=== PATIENT | female | born 1995 | race Caucasian/White ===

== ENCOUNTER → 2018-04-21 | Outpatient (REF) | payer BC | LOC: M LAB REF 04-22 10:14 | DX: Z12.4 Encounter for screening for malignant neoplasm of cervix (principal) ==

== ENCOUNTER → 2018-05-07 | Outpatient (REF) | payer OTHER | LOC: M LAB REF 13:06 | DX: Z12.4 Encounter for screening for malignant neoplasm of cervix (principal) | CPT/HCPCS: G0123 ==

== ENCOUNTER → 2019-05-20 | Outpatient (CLI) | payer OTHER ==
[2019-05-20 11:08] LABS: CHOLESTEROL RISK RATIO 2.714 (<5); FREE T4 0.96 NG/DL (0.76-1.46); PROLACTIN 11.2 NG/ML; THYROID STIMULATING HORMONE 1.57 uIU/ML (0.358-3.740)
[2019-05-20 11:09] LABS: ESTRADIOL 26.2 PG/ML; FOLLICLE STIMULATING HORMONE 4.8 mIU/mL; LUTEINIZING HORMONE 2.8 mIU/mL
[2019-05-20 11:11] LABS: HEMOGLOBIN A1c 5.2 %
[2019-05-20 11:15] LABS: HEMATOCRIT 40.7 % (36.0-47.0); MEAN CORPUSCULAR HEMOGLOBIN 27.7 pg (27.0-33.0); MEAN CORPUSCULAR HGB CONC 31.9 g/dl (32.0-36.5); MEAN CORPUSCULAR VOLUME 86.8 fl (80.0-96.0); PLATELET COUNT, AUTOMATED 301 10^3/uL (150-450); RED BLOOD COUNT 4.69 10^6/uL (4.00-5.40); WHITE BLOOD COUNT 7.9 10^3/uL (4.0-10.0)
[2019-05-24 14:39] LABS: 17 HYDROXY PROGESTERONE 17 ng/dL (.); INSULIN LEVEL 28.8 uIU/mL (2.6-24.9); TESTOSTERONE FREE (DIRECT) 3.2 pg/mL (0.0-4.2)
== END ==
LOC: M WUC 08:14
PROVIDERS: ATTEND Advanced Practice Midwife
DX: N92.6 Irregular menstruation, unspecified (principal)

== ENCOUNTER → 2019-06-14 | Outpatient (CLI) | payer OTHER | LOC: M WUC 12:24 | PROVIDERS: ATTEND Advanced Practice Midwife | DX: N92.6 Irregular menstruation, unspecified (principal) ==

== ENCOUNTER → 2019-07-25 | Outpatient (CLI) | payer OTHER, BC | LOC: M WUC 10:45 | PROVIDERS: ATTEND Advanced Practice Midwife | DX: N92.6 Irregular menstruation, unspecified (principal) ==

== ENCOUNTER 2020-03-29 09:49 | Emergency (ER) | payer BC, OTHER ==
[~2020-03-29] VITALS: Ht 160 cm; Wt 120.6 kg
[2020-03-29] MEDS ORDERED: FLUTISP (10:00)
[2020-03-29] MEDS ORDERED: ADV100INH (10:00)
[2020-03-29] MEDS ORDERED: LEVA45AE (10:00)
[2020-03-29 11:01] LABS: BASO % 0.3 % (0.0-1.0); EOS # 0.1 10^3/uL (0.0-0.5); EOS % 0.5 % (0.0-3.0); HEMATOCRIT 40.9 % (36.0-47.0); HEMOGLOBIN 13.2 g/dl (12.0-15.5); LYMPH # 2.1 10^3/uL (1.5-5.0); LYMPH % 18.8 % (24.0-44.0); MEAN CORPUSCULAR HEMOGLOBIN 27.3 pg (27.0-33.0); MEAN CORPUSCULAR HGB CONC 32.3 g/dl (32.0-36.5); MEAN CORPUSCULAR VOLUME 84.5 fl (80.0-96.0); MONO # 0.7 10^3/uL (0.0-0.8); MONO % 6.5 % (0.0-5.0); NEUTROPHILS # 8.2 10^3/uL (1.5-8.5); NEUTROPHILS % 73.4 % (36.0-66.0); PLATELET COUNT, AUTOMATED 302 10^3/uL (150-450); RED BLOOD COUNT 4.84 10^6/uL (4.00-5.40); WHITE BLOOD COUNT 11.1 10^3/uL (4.0-10.0)
[2020-03-29 11:12] LABS: APPEARANCE, URINE HAZY (CLEAR); BACTERIA, URINE AUTO 2+ (NEGATIVE); BILIRUBIN, URINE AUTO NEGATIVE (NEGATIVE); BLOOD, URINE BLOOD 3+ (NEGATIVE); COLOR, URINE YELLOW (YELLOW); GLUCOSE, URINE (UA) AUTO NEGATIVE (NEGATIVE); KETONE, URINE AUTO NEGATIVE (NEGATIVE); LEUKOCYTE ESTERASE, URINE AUTO 1+ (NEGATIVE); MUCUS, URINE SMALL (NEGATIVE); NITRITE, URINE AUTO NEGATIVE (NEGATIVE); PROTEIN, URINE AUTO NEGATIVE (NEGATIVE); RBC, URINE AUTO 157 /HPF (0-3); SPECIFIC GRAVITY URINE AUTO 1.013 (1.002-1.035); SQUAMOUS EPITHELIAL CELL UR AU 3 /HPF (0-6); UROBILINOGEN, URINE AUTO 0.2 mg/dL (0.0-2.0); WBC, URINE AUTO 30 /HPF (0-3)
--- NOTE | 2020-03-29 11:19 | REPVR ---
PROCEDURE INFORMATION: Exam: US First Trimester, Transabdominal and US , Transvaginal Exam date and time: 03/29/2020 10:42 AM Age: 24 years old Clinical indication: Lmp or gestational age (in weeks): 7w4d; Antepartum complications; Bleeding; ; Additional info: 7wks with vag bleeding and cramping TECHNIQUE: Imaging protocol: Real-time transabdominal obstetrical ultrasound of the maternal pelvis and a first trimester , less than 14 weeks 0 days, with image documentation. Transvaginal imaging was used for better evaluation of the fetus and adnexa. COMPARISON: No relevant prior studies available. FINDINGS: Gestation: Single sac like structure within the uterus. This may represent a very early intrauterine gestational sac. No definite yolk sac or pole. Embryonic/ heart rate: N/A Placenta: Unremarkable. No subchorionic bleed. Amniotic fluid: N/A BIOMETRY: Gestational age (AUA): Mean sac diameter measures 4 mm, compatible with a gestational age of 4 weeks and 6 days. Estimated due date (AUA): Estimated date of delivery is November 30, 2020. MATERNAL: Uterus: Uterus measures 7.2 x 3.5 by 3.4 cm. Cervix: Unremarkable. Right adnexa: Positive right ovarian blood flow. Left adnexa: Positive left ovarian blood flow. Intraperitoneal space: No intraperitoneal free fluid. IMPRESSION: Single tiny sac-like structure within the uterus. This may represent a very early intrauterine gestational sac, dating 4 weeks and 6 days. Recommend follow-up beta HCG and short-term interval follow-up pelvic ultrasound. Electronically signed by: Radha Ortega On 03/29/2020 11:19:39 AM
[2020-03-29 11:28] LABS: BLOOD UREA NITROGEN 7 MG/DL (7-18); CALCIUM LEVEL 8.7 MG/DL (8.5-10.1); CARBON DIOXIDE LEVEL 25 MEQ/L (21-32); CHLORIDE LEVEL 107 MEQ/L (98-107); CREATININE FOR GFR 0.64 MG/DL (0.55-1.30); GLOMERULAR FILTRATION RATE > 60.0 (>60); GLUCOSE, FASTING 83 MG/DL (70-100); HCG, SERUM QUANTITATIVE 432 MIU/ML; POTASSIUM SERUM 3.8 MEQ/L (3.5-5.1); SODIUM LEVEL 138 MEQ/L (136-145)
[2020-03-29] MEDS ORDERED: KEFL500C17 PO (12:00)
[2020-03-29 12:06] VITALS: BP 136/81
== END 2020-03-29 12:08 | disposition home or self-care (01) ==
LOC: M ED 09:49
DX: O26.851 Spotting complicating pregnancy, first trimester (principal); O23.41 Unspecified infection of urinary tract in pregnancy, first trimester; Z3A.01 Less than 8 weeks gestation of pregnancy; Z79.899 Other long term (current) drug therapy

== ENCOUNTER → 2020-03-31 | Outpatient (CLI) | payer BC, OTHER ==
[~2020-03-31] MED LIST: ADV100INH; FLUTISP; KEFL500C17 PO; LEVA45AE
== END ==
LOC: M LAB 10:31
PROVIDERS: ATTEND Nurse Practitioner Family
DX: O20.0 Threatened abortion (principal); Z3A.00 Weeks of gestation of pregnancy not specified

== ENCOUNTER → 2020-04-07 | Outpatient (CLI) | payer BC, OTHER | LOC: M WUC 16:15 | PROVIDERS: ATTEND Advanced Practice Midwife | DX: O03.9 Complete or unspecified spontaneous abortion without complication (principal) ==

== ENCOUNTER → 2021-03-21 | Outpatient (CLI) | payer BC, OTHER ==
[2021-03-21 11:13] LABS: HCG, SERUM QUANTITATIVE < 1.0 MIU/ML
[2021-03-21 11:15] LABS: ESTRADIOL 30.9 PG/ML; LUTEINIZING HORMONE 4.4 mIU/mL; PROGESTERONE 0.49 NG/ML
[2021-03-21 11:16] LABS: FOLLICLE STIMULATING HORMONE 6.3 mIU/mL
== END ==
LOC: M RAD 09:29
PROVIDERS: ATTEND Obstetrics & Gynecology Reproductive Endocrinology
DX: N97.9 Female infertility, unspecified (principal)

== ENCOUNTER → 2021-03-29 | Outpatient (CLI) | payer BC, OTHER ==
--- NOTE | 2021-03-29 08:16 | REP ---
INDICATION: INFERTILITY. COMPARISON: Comparison exam March 21, 2021. TECHNIQUE: Transvaginal pelvic sonography. Ovarian follicle study. FINDINGS: Uterine dimensions are normal at 7.5 x 3.2 by 4.1 cm. Endometrial echo is 0.3 cm thick. No free fluid is seen. No focal uterine mass lesion is observed. The right ovary is dimensions are 4.1 x 2.7 x 2.8 cm. There is a 2.7 x 2.1 cm follicle in the right ovary and there are 4 follicles ranging in size from 0.6-0.8 cm in the right ovary. No other or ovarian follicles measuring over a cm today. The left ovary is dimensions are 3.3 x 2.4 x 2.1 cm. There are 2 follicles in the right ovary over a cm measured as follows: 1.1 x 0.6, and 1.1 x 0.7 cm. There are 14 follicles in the left ovary ranging in size from 0.2-0.9 cm. IMPRESSION: Ovarian follicle study findings as above. No significant morphologic abnormality. <Electronically signed by Niels Murcia > 03/29/21 [id number]
[2021-03-29 09:36] LABS: ESTRADIOL 102.5 PG/ML; LUTEINIZING HORMONE 6.6 mIU/mL; PROGESTERONE 0.21 NG/ML; TOTAL 25(OH) VITAMIN D 66.6 NG/ML (30.0-100.0)
== END ==
LOC: M RAD 06:42 → M LAB 06:42
PROVIDERS: ATTEND Obstetrics & Gynecology Reproductive Endocrinology
DX: N97.9 Female infertility, unspecified (principal)

== ENCOUNTER → 2021-03-31 | Outpatient (CLI) | payer BC, OTHER ==
--- NOTE | 2021-03-31 09:28 | REP ---
INDICATION: INFERTILITY-LABS FIRST. COMPARISON: None. TECHNIQUE: Transvaginal pelvic sonography. Ovarian follicle study. FINDINGS: Uterine dimensions are normal measured at 6.6 x 3.4 x 4.4 cm. Endometrial stripe is 0.9 cm thick. No focal uterine lesion is seen. No free fluid is noted. The right ovary has overall dimensions today of 4.2 x 3.0 x 3.1 cm. It contains a 2.6 x 2.4 cm cyst and 8 follicle cysts ranging in size from 0.3-0.8 cm. There are no other follicles in the right ovary measuring greater than a cm. The left ovary's dimensions are 3.1 x 1.8 x 2.2 cm today. There are no follicles in the left ovary measuring greater than a cm. There are 21 follicles in the left ovary ranging in size from 0.3-0.8 cm. IMPRESSION: Ovarian follicle study as above. <Electronically signed by Niels Murcia > 03/31/21 [id number]
[2021-03-31 09:38] LABS: ESTRADIOL 215.4 PG/ML; LUTEINIZING HORMONE 13.6 mIU/mL; PROGESTERONE 0.21 NG/ML
== END ==
LOC: M RAD 08:13
PROVIDERS: ATTEND Obstetrics & Gynecology Reproductive Endocrinology
DX: E28.9 Ovarian dysfunction, unspecified (principal)

== ENCOUNTER → 2021-04-03 | Outpatient (CLI) | payer BC, OTHER ==
--- NOTE | 2021-04-03 08:59 | REP ---
INDICATION: INFERTILITY-LAB 1ST COMPARISON: None. TECHNIQUE: Transvaginal pelvic ultrasound with color evaluation. FINDINGS: Normal anteverted uterus measures 7.7 x 3.4 x 3.8 cm. The endometrial complex measures 7.5 mm thickness. No discrete uterine or endometrial abnormalities are appreciated. Right ovary measures 4.1 x 2.9 x 3.4 cm and includes single 10 mm follicle along with 5 smaller follicles between 3 and 6 mm diameter as well as 2.7 cm complex cyst.; left ovary measures 2.3 x 2.2 x 2.4 cm and includes roughly 39 subcentimeter follicles between 2 and 8 mm diameter. No pelvic fluid. IMPRESSION: Complex right ovarian cyst and bilateral subcentimeter follicles as noted above. <Electronically signed by Roverto Duncan > 04/03/21 [id number]
[2021-04-03 12:00] LABS: LUTEINIZING HORMONE 5.4 mIU/mL; PROGESTERONE 2.71 NG/ML
== END ==
LOC: M RAD 08:20
PROVIDERS: ATTEND Obstetrics & Gynecology Reproductive Endocrinology
DX: N97.9 Female infertility, unspecified (principal)

== ENCOUNTER → 2021-04-20 | Outpatient (CLI) | payer BC, OTHER ==
--- NOTE | 2021-04-20 08:17 | REP ---
INDICATION: INFERTILITY COMPARISON: 04/03/2021 TECHNIQUE: Transvaginal examination for better evaluation of the endometrium and adnexa with color Doppler evaluation of the ovaries. FINDINGS: Normal anteverted uterus measures 7.1 x 3.4 x 4.6 cm. The endometrial complex measures 1.9 thickness. No discrete uterine or endometrial abnormalities are appreciated. Right ovary measures 3.6 x 1.7 x 2.3 cm and includes 10 x 7 mm, 10 x 5 mm and 15 3-9 mm follicles. Left ovary measures 3.1 x 2.2 x 2.9 cm and includes 10 x 9 mm and twenty-four 3-9 mm follicles. IMPRESSION: Bilateral follicles as described above. <Electronically signed by Roverto Duncan > 04/20/21 [id number]
[2021-04-20 09:21] LABS: HCG, SERUM QUANTITATIVE < 1.0 MIU/ML
[2021-04-20 11:05] LABS: ESTRADIOL 28.7 PG/ML; FOLLICLE STIMULATING HORMONE 6.3 mIU/mL; LUTEINIZING HORMONE 5.4 mIU/mL; PROGESTERONE 0.21 NG/ML
== END ==
LOC: M RAD 07:08
PROVIDERS: ATTEND Obstetrics & Gynecology Reproductive Endocrinology
DX: Z31.83 Encounter for assisted reproductive fertility procedure cycle (principal)

== ENCOUNTER → 2021-04-25 | Outpatient (CLI) | payer BC, OTHER ==
--- NOTE | 2021-04-25 07:59 | REP ---
INDICATION: INFERTILITY COMPARISON: 04/20/2021 TECHNIQUE: Transvaginal ultrasound examination of the uterus and bilateral ovaries for infertility. FINDINGS: Normal anteverted uterus measures 6.8 x 3.2 x 4.2 cm. The endometrial complex measures 3.0 mm thickness. No discrete uterine or endometrial abnormalities are appreciated. Right ovary measures 2.6 x 2.4 x 1.8 cm and includes 10.6 mm follicle along with 8 subcentimeter follicles between 2.0 and 5.2 mm. Left ovary measures 3.6 x 2.6 x 2.8 cm and includes 14.2 mm, 11.5 mm, and 14.0 mm follicles along with 12 subcentimeter follicles between 2.4 and 9.5 mm. IMPRESSION: Bilateral follicles as described above. <Electronically signed by Roverto Duncan > 04/25/21 [id number]
[2021-04-25 08:55] LABS: ESTRADIOL 37.7 PG/ML; LUTEINIZING HORMONE 8.5 mIU/mL; PROGESTERONE 0.25 NG/ML
== END ==
LOC: M RAD 07:06
PROVIDERS: ATTEND Obstetrics & Gynecology Reproductive Endocrinology
DX: N97.9 Female infertility, unspecified (principal)

== ENCOUNTER → 2021-04-28 | Outpatient (CLI) | payer BC, OTHER ==
[2021-04-28 09:03] LABS: ESTRADIOL 100.3 PG/ML; LUTEINIZING HORMONE 5.9 mIU/mL; PROGESTERONE 0.21 NG/ML
--- NOTE | 2021-04-28 09:06 | REPVR ---
PROCEDURE INFORMATION: Exam: US Pelvis, Transvaginal Exam date and time: 04/28/2021 7:09 AM Age: 25 years old Clinical indication: Screening exam; Follicular ultrasound; Additional info: Infertility- stat labs first TECHNIQUE: Imaging protocol: Real-time transvaginal pelvic ultrasound with image documentation. Transvaginal imaging was used for better evaluation of the endometrium, adnexa, and/or cervix. COMPARISON: Transvaginal NON- US 04/25/2021 7:15 AM FINDINGS: Uterus/cervix: The uterus measures 7.6 x 2.8 x 4.2 cm. It is homogeneous in echotexture, without demonstrated lesion. The endometrium measures 7 mm in thickness. Right adnexa: The right ovary measures 2.1 x 3.2 x 2.4 cm. It contains follicles measuring 15 x 10 mm and 10 x 8 mm, as well as 11 additional follicles measuring between 4.9 mm and 9.4 mm. Left adnexa: The left ovary measures 3.5 x 3.9 x 3.0 cm. It contains simple cysts measuring 2.3 x 2.2 x 2.2 cm and 2.1 x 2.6 x 2.2 cm. It contains follicles measuring 10 x 8 mm, 11 x 5 mm, 10 x 7 mm, 10 x 8 mm and 10 x 9 mm, as well as 9 additional follicles measuring between 6.0 and 9.3 mm. Intraperitoneal space: No demonstrated free fluid. IMPRESSION: Multiple bilateral ovarian follicles as described, with 2 simple left ovarian cysts, larger measuring 2.6 cm. Electronically signed by: Lauri Coburn On 04/28/2021 09:06:39 AM
== END ==
LOC: M RAD 06:37
PROVIDERS: ATTEND Obstetrics & Gynecology Reproductive Endocrinology
DX: N97.9 Female infertility, unspecified (principal)

== ENCOUNTER → 2021-05-06 | Outpatient (CLI) | payer BC, OTHER ==
[2021-05-08 08:57] LABS: ESTRADIOL 39.5 PG/ML; PROGESTERONE 20.2 NG/ML
== END ==
LOC: M LAB 08:59
PROVIDERS: ATTEND Obstetrics & Gynecology Reproductive Endocrinology
DX: Z31.49 Encounter for other procreative investigation and testing (principal)

== ENCOUNTER → 2021-05-13 | Outpatient (CLI) | payer BC, OTHER ==
[2021-05-13 10:28] LABS: HCG, SERUM QUANTITATIVE < 1.0 MIU/ML
== END ==
LOC: M LAB 08:47
PROVIDERS: ATTEND Obstetrics & Gynecology Reproductive Endocrinology
DX: Z32.00 Encounter for pregnancy test, result unknown (principal)

== ENCOUNTER → 2021-05-18 | Outpatient (CLI) | payer BC, OTHER ==
--- NOTE | 2021-05-18 09:34 | REP ---
INDICATION: INFERTILITY. COMPARISON: 04/28/2021. TECHNIQUE: Transvaginal pelvic ultrasound follicle study performed. FINDINGS: The uterus measures 7.5 x 3.3 x 3.7 centimeters. The endometrial echo complex is homogeneous and measures 2 millimeters in AP dimension. The right ovary measures 2.8 x 2.3 x 2.3 centimeters. Three dominant follicles measure 11 x 8, 12 x 5 and 10 x 4 millimeters. Multiple other follicles measure less than 9 millimeters. The left ovary measures 3.1 x 2.4 x 2.2 centimeters. There are multiple follicles with diameters between 2 and 6 millimeters. IMPRESSION: Ovarian follicles as discussed above. The endometrial echo complex is homogeneous and measures 2 millimeters. <Electronically signed by Kevin Reyes > 05/18/21 [id number]
[2021-05-18 10:15] LABS: HCG, SERUM QUANTITATIVE < 1.0 MIU/ML; THYROID STIMULATING HORMONE 0.971 uIU/ML (0.358-3.740)
[2021-05-18 10:17] LABS: ESTRADIOL 21.2 PG/ML; FOLLICLE STIMULATING HORMONE 7.9 mIU/mL; LUTEINIZING HORMONE 5.7 mIU/mL; PROGESTERONE 0.29 NG/ML
== END ==
LOC: M LAB 08:03
PROVIDERS: ATTEND Obstetrics & Gynecology Reproductive Endocrinology
DX: N97.9 Female infertility, unspecified (principal)

== ENCOUNTER → 2021-05-24 | Outpatient (CLI) | payer BC, OTHER ==
--- NOTE | 2021-05-24 08:21 | REP ---
INDICATION: INFERTILITY. COMPARISON: 05/18/2021 TECHNIQUE: Endovaginal probe pelvic ultrasound FINDINGS: The uterus is anteverted. It measures 6.8 x 3.3 x 4.2 cm. The central endometrial echogenic stripe is thin at 1 mm with no fluid in the endometrial cavity or endocervical canal. No uterine mass or contour abnormality. No fluid in the cul-de-sac. The right ovary is 3.2 x 2.3 x 2.4 cm. There are 2 follicles over a cm with the larger 18.2 x 16.5 mm and the other 15.7 x 9.6 mm. There is another follicle at 8 mm size. Doppler tracing shows normal waveform and color flow. No free fluid adjacent to the ovary. The left ovary is 4.2 x 2.6 x 2.9 cm. There are 3 follicles over a cm and they measure 12.6 x 8.1 mm, 11.8 x 8 mm, 11.3 x 5.1 mm. There are an additional 19 follicles in the 2-9 mm range. Normal Doppler waveform and tracing with resistive index 0.67. No free fluid adjacent to the ovary. IMPRESSION: 1. Two follicles in the right ovary over a cm and 3 in the left ovary over a cm in size. Normal Doppler tracings and color flow. No free fluid. 2. Uterus and endometrial stripe unremarkable. <Electronically signed by Paolo Whitney > 05/24/21 [id number]
[2021-05-24 10:24] LABS: ESTRADIOL 34.5 PG/ML; LUTEINIZING HORMONE 9.4 mIU/mL; PROGESTERONE 0.21 NG/ML
== END ==
LOC: M RAD 07:13
PROVIDERS: ATTEND Obstetrics & Gynecology Reproductive Endocrinology
DX: Z31.83 Encounter for assisted reproductive fertility procedure cycle (principal)

== ENCOUNTER → 2021-05-26 | Outpatient (CLI) | payer BC, OTHER ==
--- NOTE | 2021-05-26 09:31 | REP ---
INDICATION: INFERTILITY. COMPARISON: 05/24/2021. TECHNIQUE: Real-time sonographic evaluation of pelvis performed utilizing transvaginal technique to evaluate ovarian follicles. FINDINGS: Uterus measures 6.6 x 3.6 x 3.5 cm. The endometrium has a trilaminar appearance measuring 5 mm. There is no endometrial fluid collection. Right ovary measures 3.8 x 3.0 x 2.9 cm. Two dominant follicles measure 21 x 20 mm and 17 x 8 mm. Another 7 mm follicle is seen. Left ovary measures 2.9 x 2.8 x 2.7 cm. There are 2 dominant follicles measuring 19 x 13 and 15 x 9 mm. Two subcentimeter follicles are also seen in the left ovary IMPRESSION: Ovarian follicles as detailed above. <Electronically signed by Kevin Reyes > 05/26/21 [id number]
[2021-05-26 09:49] LABS: ESTRADIOL 176.6 PG/ML; LUTEINIZING HORMONE 5.8 mIU/mL; PROGESTERONE 0.66 NG/ML
== END ==
LOC: M RAD 07:18
PROVIDERS: ATTEND Obstetrics & Gynecology Reproductive Endocrinology
DX: Z31.83 Encounter for assisted reproductive fertility procedure cycle (principal)

== ENCOUNTER → 2021-06-05 | Outpatient (CLI) | payer BC, OTHER ==
[2021-06-05 11:15] LABS: ESTRADIOL 432.4 PG/ML; PROGESTERONE 17.15 NG/ML
== END ==
LOC: M LAB 07:37
PROVIDERS: ATTEND Obstetrics & Gynecology Reproductive Endocrinology
DX: Z31.49 Encounter for other procreative investigation and testing (principal)

== ENCOUNTER → 2021-06-12 | Outpatient (CLI) | payer BC, OTHER ==
[2021-06-12 09:18] LABS: HCG, SERUM QUANTITATIVE < 1.0 MIU/ML
[2021-06-12 10:26] LABS: PROGESTERONE 9.89 NG/ML
== END ==
LOC: M LAB 08:02
PROVIDERS: ATTEND Obstetrics & Gynecology Reproductive Endocrinology
DX: Z32.00 Encounter for pregnancy test, result unknown (principal)

== ENCOUNTER → 2021-07-01 | Outpatient (CLI) | payer BC, OTHER ==
[2021-07-03 11:38] LABS: ESTRADIOL 1304.6 PG/ML; PROGESTERONE 18.38 NG/ML
== END ==
LOC: M LAB 08:33
PROVIDERS: ATTEND Obstetrics & Gynecology Reproductive Endocrinology
DX: Z31.49 Encounter for other procreative investigation and testing (principal)

== ENCOUNTER → 2021-07-08 | Outpatient (CLI) | payer BC, OTHER ==
[2021-07-08 09:47] LABS: HCG, SERUM QUANTITATIVE < 1.0 MIU/ML
[2021-07-10 10:20] LABS: PROGESTERONE 10.12 NG/ML
== END ==
LOC: M LAB 08:30
PROVIDERS: ATTEND Obstetrics & Gynecology Reproductive Endocrinology
DX: Z32.00 Encounter for pregnancy test, result unknown (principal)

== ENCOUNTER → 2021-07-28 | Outpatient (CLI) | payer BC, OTHER ==
[2021-07-28 09:26] LABS: ESTRADIOL 125.5 PG/ML; PROGESTERONE 12.82 NG/ML
== END ==
LOC: M LAB 08:23
PROVIDERS: ATTEND Obstetrics & Gynecology Reproductive Endocrinology
DX: Z31.49 Encounter for other procreative investigation and testing (principal)

== ENCOUNTER → 2021-08-07 | Outpatient (CLI) | payer BC, OTHER ==
[2021-08-07 10:34] LABS: THYROID STIMULATING HORMONE 2.33 uIU/ML (0.358-3.740)
[2021-08-07 10:35] LABS: ESTRADIOL 315.6 PG/ML; PROGESTERONE 28.85 NG/ML
== END ==
LOC: M LAB 09:07
PROVIDERS: ATTEND Obstetrics & Gynecology Reproductive Endocrinology
DX: Z32.01 Encounter for pregnancy test, result positive (principal)

== ENCOUNTER → 2021-08-21 | Outpatient (CLI) | payer BC, OTHER | LOC: M LAB 16:48 | PROVIDERS: ATTEND Obstetrics & Gynecology Reproductive Endocrinology | DX: O02.1 Missed abortion (principal) ==

== ENCOUNTER → 2021-08-28 | Outpatient (CLI) | payer BC, OTHER | LOC: M LAB 16:36 | PROVIDERS: ATTEND Obstetrics & Gynecology Reproductive Endocrinology | DX: O02.1 Missed abortion (principal) ==

== ENCOUNTER → 2021-09-22 | Outpatient (CLI) | payer BC, OTHER | LOC: M WUC 15:29 | PROVIDERS: ATTEND Physician Assistant | DX: M25.551 Pain in right hip (principal); M54.50 Low back pain, unspecified ==

== ENCOUNTER → 2021-10-17 | Outpatient (CLI) | payer BC, OTHER ==
[2021-10-17 10:54] LABS: ESTRADIOL 44.9 PG/ML; PROGESTERONE 51.68 NG/ML
== END ==
LOC: M LAB 09:03
PROVIDERS: ATTEND Obstetrics & Gynecology Reproductive Endocrinology
DX: Z31.49 Encounter for other procreative investigation and testing (principal)

== ENCOUNTER → 2021-10-24 | Outpatient (CLI) | payer BC, OTHER ==
[2021-10-24 12:26] LABS: PROGESTERONE 12.04 NG/ML
== END ==
LOC: M PLALAB 08:26
PROVIDERS: ATTEND Obstetrics & Gynecology Reproductive Endocrinology
DX: Z32.00 Encounter for pregnancy test, result unknown (principal)

== ENCOUNTER → 2021-12-26 | Outpatient (REF) | payer BC, OTHER | LOC: M SFHCWAGY 13:04 | PROVIDERS: ATTEND Specialist | DX: Z12.4 Encounter for screening for malignant neoplasm of cervix (principal); R87.610 Atypical squamous cells of undetermined significance on cytologic smear of cervix (ASC-US); B37.3 Candidiasis of vulva and vagina | CPT/HCPCS: 87624; G0123 ==

== ENCOUNTER → 2022-01-26 | Outpatient (CLI) | payer BC, OTHER | LOC: M PLALAB 15:06 | PROVIDERS: ATTEND Specialist | DX: L65.9 Nonscarring hair loss, unspecified (principal) ==

== ENCOUNTER → 2022-03-16 | Outpatient (CLI) | payer BC, OTHER ==
[2022-03-16 10:00] LABS: PROGESTERONE 32.85 NG/ML
== END ==
LOC: M LAB 07:29
PROVIDERS: ATTEND Obstetrics & Gynecology Reproductive Endocrinology
DX: Z31.49 Encounter for other procreative investigation and testing (principal)

== ENCOUNTER → 2022-03-23 | Outpatient (CLI) | payer BC, OTHER ==
[2022-03-23 14:53] LABS: PROGESTERONE 35.49 NG/ML
== END ==
LOC: M PLALAB 09:35
PROVIDERS: ATTEND Obstetrics & Gynecology Reproductive Endocrinology
DX: Z32.00 Encounter for pregnancy test, result unknown (principal)

== ENCOUNTER → 2022-03-27 | Outpatient (CLI) | payer BC, OTHER ==
[2022-03-27 07:44] LABS: THYROID STIMULATING HORMONE 3.6 uIU/ML (0.358-3.740)
[2022-03-27 10:46] LABS: PROGESTERONE 43.25 NG/ML
[2022-03-27 11:14] LABS: ESTRADIOL 3501.1 PG/ML
== END ==
LOC: M LAB 06:39
PROVIDERS: ATTEND Obstetrics & Gynecology Reproductive Endocrinology
DX: Z32.01 Encounter for pregnancy test, result positive (principal)

== ENCOUNTER → 2022-05-02 | Outpatient (CLI) | payer BC, OTHER | LOC: M LAB 16:08 | PROVIDERS: ATTEND Obstetrics & Gynecology Reproductive Endocrinology | DX: O02.1 Missed abortion (principal) ==

== ENCOUNTER → 2022-05-17 | Outpatient (CLI) | payer BC, OTHER | LOC: M LAB 16:28 | PROVIDERS: ATTEND Obstetrics & Gynecology Reproductive Endocrinology | DX: O02.1 Missed abortion (principal) ==

== ENCOUNTER → 2022-06-01 | Outpatient (CLI) | payer BC, OTHER | LOC: M WUC 11:05 | PROVIDERS: ATTEND Obstetrics & Gynecology Reproductive Endocrinology | DX: N96 Recurrent pregnancy loss (principal); Z53.9 Procedure and treatment not carried out, unspecified reason ==

== ENCOUNTER → 2022-08-24 | Outpatient (CLI) | payer BC, OTHER | LOC: M SOG 08:17 | PROVIDERS: ATTEND Orthopaedic Surgery | DX: M54.50 Low back pain, unspecified (principal) ==

== ENCOUNTER 2022-11-20 13:15 | Emergency (ER) | payer BC, OTHER ==
[~2022-11-20] VITALS: Ht 160 cm; Wt 109.0 kg
[~2022-11-20 13:15] MED LIST changes: +FLUT50SP17; -FLUTISP
[2022-11-20] MEDS ORDERED: IBUP-1114 PO (13:27)
[2022-11-20] MEDS ORDERED: LEVO50TA5 (13:27)
[2022-11-20 14:30] LABS: BASO % 0.3 % (0.0-1.0); EOS # 0.1 10^3/uL (0.0-0.5); EOS % 0.6 % (0.0-3.0); HEMATOCRIT 41.2 % (36.0-47.0); HEMOGLOBIN 13.6 g/dl (12.0-15.5); LYMPH # 2.6 10^3/uL (1.5-5.0); LYMPH % 20.5 % (24.0-44.0); MEAN CORPUSCULAR HEMOGLOBIN 28.5 pg (27.0-33.0); MEAN CORPUSCULAR VOLUME 86.2 fl (80.0-96.0); MONO # 0.7 10^3/uL (0.0-0.8); MONO % 5.8 % (2.0-8.0); NEUTROPHILS % 72.4 % (36.0-66.0); PLATELET COUNT, AUTOMATED 359 10^3/uL (150-450); RED BLOOD COUNT 4.78 10^6/uL (4.00-5.40); WHITE BLOOD COUNT 12.5 10^3/uL (4.0-10.0)
[2022-11-20 14:58] LABS: BLOOD UREA NITROGEN 11 MG/DL (9-23); CARBON DIOXIDE LEVEL 26 MMOL/L (20-31); CHLORIDE LEVEL 105 MMOL/L (98-107); CREATININE FOR GFR 0.72 MG/DL (0.55-1.30); GLOMERULAR FILTRATION RATE > 60.0 (>60); GLUCOSE, FASTING 97 MG/DL (60-100); POTASSIUM SERUM 3.8 MMOL/L (3.5-5.1); SODIUM LEVEL 137 MMOL/L (136-145)
[2022-11-20 15:00] LABS: FREE T4 1.27 NG/DL (0.89-1.76)
[2022-11-20 15:01] LABS: ERYTHROCYTE SEDIMENTATION RATE 21 mm/hr (0-20); THYROID STIMULATING HORMONE 0.518 uIU/ML (0.55-4.78)
[2022-11-20] MEDS ORDERED: NS 1,000 ML IV ONE (15:30)
[2022-11-20 15:51] LABS: HCG, SERUM QUANTITATIVE < 2.6 MIU/ML (<4.2)
[2022-11-20] MEDS ORDERED: ISOVUE-370 76% 100ML VIAL As Ordered ONE (15:57)
[2022-11-20] MEDS ORDERED: KETOROLAC 30 MG/ML 1ML VIAL IV ONE (17:20)
[2022-11-20] MEDS ORDERED: VERA40TA PO (17:41)
[2022-11-20 17:53] VITALS: BP 127/69
== END 2022-11-20 16:01 | disposition home or self-care (01) ==
LOC: M ED 13:15
DX: G44.221 Chronic tension-type headache, intractable (principal); G44.82 Headache associated with sexual activity; E28.2 Polycystic ovarian syndrome; J45.909 Unspecified asthma, uncomplicated; Z79.1 Long term (current) use of non-steroidal anti-inflammatories (NSAID); Z79.890 Hormone replacement therapy; Z79.899 Other long term (current) drug therapy
CPT/HCPCS: 70450; 70496; 70498; 80048; 84439; 84443; 84702; 85025; 85652; 96361; 96374; 96375; 99284; J1100; J1885; Q9967

== ENCOUNTER → 2023-05-17 | Outpatient (CLI) | payer BC, OTHER ==
[~2023-05-17] MED LIST changes: +IBUP-1114 PO; +LEVO50TA5; +VERA40TA PO
[2023-05-17 17:42] LABS: HEMOGLOBIN 13.1 g/dl (12.0-15.5); MEAN CORPUSCULAR HEMOGLOBIN 28.2 pg (27.0-33.0); MEAN CORPUSCULAR HGB CONC 33.6 g/dl (32.0-36.5); MEAN CORPUSCULAR VOLUME 83.9 fl (80.0-96.0); PLATELET COUNT, AUTOMATED 284 10^3/uL (150-450); RED BLOOD COUNT 4.65 10^6/uL (4.00-5.40)
[2023-05-17 18:07] LABS: FREE T4 0.96 NG/DL (0.89-1.76)
[2023-05-17 18:09] LABS: THYROID STIMULATING HORMONE 0.543 uIU/ML (0.55-4.78)
[2023-05-17 18:33] LABS: HIV 1&2 SCREEN NEGATIVE (NEGATIVE)
[2023-05-17 18:41] LABS: GC DNA AMPLIFICATION NEGATIVE (NEGATIVE); HEPATITIS C VIRUS ABY INDEX 0.04 INDEX (<0.8)
[2023-05-17 18:47] LABS: HEMOGLOBIN A1c 4.8 % (4.0-6.0)
== END ==
LOC: M PLALAB 15:08
PROVIDERS: ATTEND Advanced Practice Midwife
DX: Z34.81 Encounter for supervision of other normal pregnancy, first trimester (principal); Z3A.00 Weeks of gestation of pregnancy not specified

== ENCOUNTER → 2023-06-10 | Outpatient (REF) | payer BC | LOC: M PLALAB 15:26 | PROVIDERS: ATTEND Advanced Practice Midwife | DX: Z34.82 Encounter for supervision of other normal pregnancy, second trimester (principal) ==

== ENCOUNTER → 2023-06-28 | Outpatient (CLI) | payer BC, OTHER ==
[~2023-06-28] MED LIST changes: -FLUT50SP17; +FLUTISP
== END ==
LOC: M WHC 10:04
PROVIDERS: ATTEND Advanced Practice Midwife
DX: Z34.82 Encounter for supervision of other normal pregnancy, second trimester (principal)

== ENCOUNTER → 2023-07-26 | Outpatient (CLI) | payer BC, OTHER | LOC: M WHC 10:01 | PROVIDERS: ATTEND Advanced Practice Midwife | DX: Z34.82 Encounter for supervision of other normal pregnancy, second trimester (principal) ==

== ENCOUNTER → 2023-08-09 | Outpatient (CLI) | payer BC, OTHER ==
[2023-08-09 10:43] LABS: HEMATOCRIT 37.5 % (36.0-47.0); HEMOGLOBIN 12.3 g/dl (12.0-15.5); MEAN CORPUSCULAR HEMOGLOBIN 28.3 pg (27.0-33.0); MEAN CORPUSCULAR HGB CONC 32.8 g/dl (32.0-36.5); MEAN CORPUSCULAR VOLUME 86.2 fl (80.0-96.0); PLATELET COUNT, AUTOMATED 260 10^3/uL (150-450); RED BLOOD COUNT 4.35 10^6/uL (4.00-5.40); WHITE BLOOD COUNT 12.2 10^3/uL (4.0-10.0)
[2023-08-09 10:57] LABS: FREE T4 0.96 NG/DL (0.89-1.76); THYROID STIMULATING HORMONE 0.652 uIU/ML (0.55-4.78)
== END ==
LOC: M PLALAB 07:42
PROVIDERS: ATTEND Advanced Practice Midwife
DX: Z34.82 Encounter for supervision of other normal pregnancy, second trimester (principal); O99.280 Endocrine, nutritional and metabolic diseases complicating pregnancy, unspecified trimester

== ENCOUNTER → 2023-10-04 | Outpatient (REF) | payer BC, OTHER ==
[2023-10-04 18:35] LABS: THYROID STIMULATING HORMONE 0.917 uIU/ML (0.55-4.78)
[2023-10-04 18:36] LABS: FREE T4 0.89 NG/DL (0.89-1.76)
== END ==
LOC: M LABDRAWP 17:12
PROVIDERS: ATTEND Advanced Practice Midwife
DX: O99.280 Endocrine, nutritional and metabolic diseases complicating pregnancy, unspecified trimester (principal)

== ENCOUNTER → 2023-10-11 | Outpatient (CLI) | payer BC | LOC: M RAD 16:02 | PROVIDERS: ATTEND Advanced Practice Midwife | DX: O26.843 Uterine size-date discrepancy, third trimester (principal); Z3A.34 34 weeks gestation of pregnancy ==

== ENCOUNTER → 2023-10-18 | Outpatient (REF) | payer BC | LOC: M SFHCWAGY 16:46 | PROVIDERS: ATTEND Specialist | DX: Z34.83 Encounter for supervision of other normal pregnancy, third trimester (principal) ==

== ENCOUNTER 2023-10-25 15:45 | Inpatient (IN) | payer BC ==
[~2023-10-25] VITALS: Ht 160 cm; Wt 129.5 kg
[2023-10-25] VITALS (8 sets, daily range): BP systolic 131–167; BP diastolic 61–75
[~2023-10-25 15:45] MED LIST changes: -ADV100INH; +ADV100INH INH; -FLUTISP; +FLUTISP INH; -LEVA45AE; +LEVA45AE INH; -LEVO50TA5; +LEVO50TA5 PO
[2023-10-25] MEDS ORDERED: HOME MED LIST COMPLETE! XX SCH (16:35)
[2023-10-25] MEDS ORDERED: HEPA1INJ8 SC (17:03)
[2023-10-25] MEDS ORDERED: CARBOPROST TROMETHAMINE 250 MCG/ML AMP IM PRN (17:05)
[2023-10-25] MEDS ORDERED: OXYTOCIN DRIP 30 UNITS in IV 1 EA IV PRN (17:05)
[2023-10-25] MEDS ORDERED: TRANEXAMIC ACID INJection 1,000 MG in NS 100 ML IV PRN (17:05)
[2023-10-25] MEDS ORDERED: OXYTOCIN INJ 10UNITS/ML 1ML VIAL IM PRN (17:05)
[2023-10-25] MEDS ORDERED: LABETALOL 100MG/20ML VIAL As Ordered ONE (18:28)
[2023-10-25] MEDS: LABETALOL 100MG/20ML VIAL IV STA (18:33)
[2023-10-25 18:48] LABS: HEMATOCRIT 35.9 % (36.0-47.0); HEMOGLOBIN 11.9 g/dl (12.0-15.5); MEAN CORPUSCULAR HEMOGLOBIN 28.3 pg (27.0-33.0); MEAN CORPUSCULAR HGB CONC 33.1 g/dl (32.0-36.5); MEAN CORPUSCULAR VOLUME 85.3 fl (80.0-96.0); PLATELET COUNT, AUTOMATED 271 10^3/uL (150-450); RED BLOOD COUNT 4.21 10^6/uL (4.00-5.40); WHITE BLOOD COUNT 12.8 10^3/uL (4.0-10.0)
[2023-10-25 18:55] LABS: TOTAL PROTEIN,RANDOM URINE 11.1 MG/DL (0.0-14.0)
[2023-10-25 18:59] LABS: CREATININE,RANDOM URINE 24.4 MG/DL
[2023-10-25 19:06] LABS: LDH LACTATE DEHYDROGENASE 412 U/L (120-246)
[2023-10-25 19:07] LABS: ALT/SGPT 11 U/L (7.0-40); AST/SGOT 24 U/L (<34); BILIRUBIN,TOTAL 0.2 MG/DL (0.3-1.2); CREATININE FOR GFR 0.51 MG/DL (0.55-1.30); GLOMERULAR FILTRATION RATE > 60.0 (>60)
[2023-10-25] MEDS: miSOPROStol 50MCG 1/2 TABLET PO SCH (19:54)
[2023-10-25 20:01] LABS: URIC ACID 4.3 MG/DL (3.1-7.8)
[2023-10-26] VITALS (37 sets, daily range): BP systolic 118–203; BP diastolic 56–100
[2023-10-26] MEDS: OXYTOCIN DRIP 30 UNITS in IV 1 EA IV SCH (13:12)
[2023-10-26] MEDS: LR 1,000 ML IV SCH (13:12)
[2023-10-26] MEDS ORDERED: diphenhydrAMINE 50MG/ML VIAL IV PRN (22:50)
[2023-10-26] MEDS ORDERED: LR 500 ML IV PRN (22:50)
[2023-10-26] MEDS ORDERED: NALOXONE INJ 0.4MG/1ML VIAL IV PRN (22:50)
[2023-10-26] MEDS ORDERED: EPIDURAL/PCA KEYS XX PRN (22:50)
[2023-10-26] MEDS ORDERED: ePHEDrine SULFATE 25 MG/5 ML(5MG/ML) SYRINGE IVP PRN (22:50)
[2023-10-26] MEDS ORDERED: ONDANSETRON 4MG 2ML VIAL IV PRN (22:50)
[2023-10-27] VITALS (19 sets, daily range): BP systolic 136–169; BP diastolic 65–90; O2SAT 96–97
[2023-10-27] MEDS: BUTORPHANOL 2 MG/ML 1ML VIAL IV ONE (04:05)
[2023-10-27] MEDS: PROMETHAZINE 25MG/ML 1ML VIAL IV ONE (04:05)
[2023-10-27] MEDS: FENTANYL/ROPIVACAINE/NACL BAG 100 ML EPIDURAL SCH (04:32)
[2023-10-27] MEDS: LIDOCAINE 1% MDV 20ML VIAL INFIL PRN (05:54)
[2023-10-27] MEDS: OXYTOCIN DRIP 30 UNITS in IV 1 EA IV PRN (05:58)
[2023-10-27] MEDS ORDERED: ACETAMINOPHEN 500 MG TAB PO PRN (06:20)
[2023-10-27] MEDS ORDERED: METHYLERGONOVINE MALEATE 0.2 MG TAB PO PRN (06:20)
[2023-10-27] MEDS ORDERED: ACETAMINOPHEN TAB 650MG DOSE (2X325MG) PO PRN (06:20)
[2023-10-27] MEDS: PRENATAL VITAMINS CHEWABLE TABLET PO SCH (08:20)
[2023-10-27] MEDS: IBUPROFEN 800 MG TAB PO PRN (08:21)
[2023-10-27] MEDS: LABETALOL 200 MG TAB PO SCH (08:22)
[2023-10-27] MEDS: RHOGAM 300MCG (1500IU) INJ IM SCH (08:27)
[2023-10-27 19:01] LABS: HEMATOCRIT 31.3 % (36.0-47.0); HEMOGLOBIN 10.6 g/dl (12.0-15.5); MEAN CORPUSCULAR HEMOGLOBIN 28.4 pg (27.0-33.0); MEAN CORPUSCULAR HGB CONC 33.9 g/dl (32.0-36.5); MEAN CORPUSCULAR VOLUME 83.9 fl (80.0-96.0); PLATELET COUNT, AUTOMATED 228 10^3/uL (150-450); RED BLOOD COUNT 3.73 10^6/uL (4.00-5.40); WHITE BLOOD COUNT 18.2 10^3/uL (4.0-10.0)
[2023-10-27] MEDS: DIBUCAINE 1% OINTMENT 30GM TOP PRN (19:52)
[2023-10-28] VITALS (7 sets, daily range): BP systolic 123–154; BP diastolic 57–87; O2SAT 95–99
[2023-10-28] MEDS: IBUPROFEN 600MG TAB PO PRN (01:08)
[2023-10-28] MEDS: ENOXAPARIN 40MG/0.4ML SYRINGE (J1650 PER 10MG) SC SCH (09:00)
[2023-10-28] MEDS: DOCUSATE SODIUM 100MG CAPSULE PO PRN (18:07)
[2023-10-29 02:00] VITALS: BP 158/78; O2SAT 98
[2023-10-29 06:00] VITALS: BP 130/70; O2SAT 95
[2023-10-29] MEDS: MEASLES,MUMPS,RUBELLA VACCINE INJ (MMR-II) SC.IMMUN ONE (06:00)
[2023-10-29 08:30] VITALS: BP 152/98
[2023-10-29 08:35] VITALS: BP 158/92
[2023-10-29 09:32] VITALS: BP 134/82; O2SAT 99
[2023-10-29] MEDS ORDERED: ACET-683 PO (11:55)
[2023-10-29] MEDS ORDERED: LABE20TAB PO (11:55)
[2023-10-29] MEDS ORDERED: COLA100C5 PO (11:55)
[2023-10-29] MEDS ORDERED: LOVE1INJ SC (11:55)
[2023-10-29] MEDS ORDERED: IBUP-1022 PO (11:55)
[2023-11-01] MEDS ORDERED: PRENTAB9 PO (22:23)
== END 2023-10-29 12:50 | disposition home or self-care (01) | DRG 560 ==
LOC: M LDO 15:45 → M LDI 17:09 → M OBS 10-27 08:10
PROVIDERS: ADMIT Advanced Practice Midwife; ATTEND Advanced Practice Midwife
PROC: 3E033VJ Introduction of Other Hormone into Peripheral Vein, Percutaneous Approach (ICD-10-PCS; 2023-10-26)
PROC: 3E0DXGC Introduction of Other Therapeutic Substance into Mouth and Pharynx, External Approach (ICD-10-PCS; 2023-10-26)
PROC: 10E0XZZ Delivery of Products of Conception, External Approach (ICD-10-PCS; principal; 2023-10-27)
PROC: 10907ZC Drainage of Amniotic Fluid, Therapeutic from Products of Conception, Via Natural or Artificial Opening (ICD-10-PCS; 2023-10-27)
DX: O14.94 Unspecified pre-eclampsia, complicating childbirth (principal); O69.82X0 Labor and delivery complicated by other cord entanglement, without compression, not applicable or unspecified; Z37.0 Single live birth; Z3A.36 36 weeks gestation of pregnancy; O70.1 Second degree perineal laceration during delivery

== ENCOUNTER → 2024-05-23 | Outpatient (CLI) | payer BC ==
[~2024-05-23] MED LIST changes: +ACET-683 PO; +COLA100C5 PO; +HEPA1INJ8 SC; +IBUP-1022 PO; +LABE20TAB PO; +LOVE1INJ SC; +NIFE1TAB52 PO; +PRENTAB9 PO
[2024-05-23 10:12] LABS: HEMATOCRIT 41.7 % (36.0-47.0); HEMOGLOBIN 13.7 g/dl (12.0-15.5); MEAN CORPUSCULAR HEMOGLOBIN 28.4 pg (27.0-33.0); MEAN CORPUSCULAR HGB CONC 32.9 g/dl (32.0-36.5); MEAN CORPUSCULAR VOLUME 86.5 fl (80.0-96.0); PLATELET COUNT, AUTOMATED 298 10^3/uL (150-450); RED BLOOD COUNT 4.82 10^6/uL (4.00-5.40); WHITE BLOOD COUNT 7.1 10^3/uL (4.0-10.0)
[2024-05-23 10:45] LABS: ALBUMIN 3.6 G/DL (3.2-5.2); ALKALINE PHOSPHATASE 108 U/L (35-104); ALT/SGPT 18 U/L (7.0-40); AST/SGOT < 8 U/L (<34); BILIRUBIN,TOTAL 0.5 MG/DL (0.3-1.2); BLOOD UREA NITROGEN 10 MG/DL (9-23); CALCIUM LEVEL 9.6 MG/DL (8.5-10.1); CARBON DIOXIDE LEVEL 28 MMOL/L (20-31); CHLORIDE LEVEL 108 MMOL/L (98-107); CHOLESTEROL LEVEL 173 MG/DL (<200); CHOLESTEROL RISK RATIO 2.97 (<5); CREATININE FOR GFR 0.67 MG/DL (0.55-1.30); GLOMERULAR FILTRATION RATE > 60.0 (>60); GLUCOSE, FASTING 81 MG/DL (60-100); HDL CHOLESTEROL 58.2 MG/DL (>40); LDL CHOLESTEROL 97.8 MG/DL (<100); NON-HDL-C 114.8 MG/DL; POTASSIUM SERUM 4.6 MMOL/L (3.5-5.1); SODIUM LEVEL 141 MMOL/L (136-145); THYROID STIMULATING HORMONE 0.627 uIU/ML (0.55-4.78); TOTAL PROTEIN 6.9 G/DL (5.7-8.2); TRIGLYCERIDES LEVEL 85 MG/DL (<150)
== END ==
LOC: M LAB 08:45
PROVIDERS: ATTEND Physician Assistant
DX: E78.5 Hyperlipidemia, unspecified (principal); E05.90 Thyrotoxicosis, unspecified without thyrotoxic crisis or storm

== ENCOUNTER → 2024-11-21 | Outpatient (CLI) | payer BC ==
[~2024-11-21] MED LIST changes: -ADV100INH INH; +ADVA1AER8 INH; +BREO1INH; +ELET40TA
[2024-11-21 09:35] LABS: HEMOGLOBIN 13.4 g/dl (12.0-15.5); MEAN CORPUSCULAR HGB CONC 31.9 g/dl (32.0-36.5); MEAN CORPUSCULAR VOLUME 87.7 fl (80.0-96.0); PLATELET COUNT, AUTOMATED 271 10^3/uL (150-450); RED BLOOD COUNT 4.79 10^6/uL (4.00-5.40)
[2024-11-21 09:59] LABS: ALBUMIN 3.5 G/DL (3.2-5.2); ALKALINE PHOSPHATASE 90 U/L (35-104); ALT/SGPT 17 U/L (7.0-40); AST/SGOT 12 U/L (<34); BILIRUBIN,TOTAL 0.5 MG/DL (0.3-1.2); BLOOD UREA NITROGEN 12 MG/DL (9-23); CALCIUM LEVEL 8.8 MG/DL (8.5-10.1); CARBON DIOXIDE LEVEL 27 MMOL/L (20-31); CHLORIDE LEVEL 107 MMOL/L (98-107); CHOLESTEROL LEVEL 182 MG/DL (<200); CHOLESTEROL RISK RATIO 3.59 (<5); CREATININE FOR GFR 0.62 MG/DL (0.55-1.30); GLOMERULAR FILTRATION RATE > 90.0 (>60); GLUCOSE, FASTING 81 MG/DL (60-100); HDL CHOLESTEROL 50.6 MG/DL (>40); NON-HDL-C 131.4 MG/DL; POTASSIUM SERUM 4.3 MMOL/L (3.5-5.1); SODIUM LEVEL 142 MMOL/L (136-145); TOTAL PROTEIN 6.9 G/DL (5.7-8.2); TRIGLYCERIDES LEVEL 97 MG/DL (<150)
[2024-11-21 10:01] LABS: THYROID STIMULATING HORMONE 0.797 uIU/ML (0.55-4.78)
[2024-11-23 07:47] LABS: WHITE BLOOD COUNT 9.8 10^3/uL (4.0-10.0)
== END ==
LOC: M LAB 08:28
PROVIDERS: ATTEND Physician Assistant
DX: E78.5 Hyperlipidemia, unspecified (principal); E03.9 Hypothyroidism, unspecified; D68.9 Coagulation defect, unspecified

== ENCOUNTER → 2025-02-02 | Outpatient (CLI) | payer BC, OTHER ==
[~2025-02-02] MED LIST changes: +ACET-897 PO; +BACL10TA2 PO; -ELET40TA; +ELET40TA PO; +FLUT12HF2 INH; -FLUTISP INH; +FLUTISP NARES; +GABA-1171 PO; +HYDR-3713 PO; +KETO-204 PO; +METH4PACK PO; +TIRZ5PEN3 SUBQ
== END ==
LOC: M PLAIMG 15:31
PROVIDERS: ATTEND Physician Assistant
DX: M25.551 Pain in right hip (principal); M54.50 Low back pain, unspecified

== ENCOUNTER 2025-02-03 07:19 | Emergency (ER) | payer BC ==
[~2025-02-03] VITALS: Ht 160 cm; Wt 104.0 kg
[~2025-02-03 07:19] MED LIST changes: -ACET-897 PO; -BACL10TA2 PO; -FLUT12HF2 INH; -GABA-1171 PO; -HYDR-3713 PO; -KETO-204 PO; -METH4PACK PO; -TIRZ5PEN3 SUBQ
[2025-02-03 07:22] VITALS: TEMP 97.5
[2025-02-03] MEDS ORDERED: FLUT12HF2 INH (07:33)
[2025-02-03] MEDS ORDERED: TIRZ5PEN3 SUBQ (07:33)
[2025-02-03] MEDS ORDERED: METH4PACK PO (07:33)
[2025-02-03] MEDS ORDERED: BACL10TA2 PO (07:33)
[2025-02-03] MEDS ORDERED: GABA-1171 PO (07:33)
[2025-02-03] MEDS ORDERED: ACET-897 PO (10:47)
[2025-02-03] MEDS ORDERED: HOME MED LIST COMPLETE! XX SCH (10:50)
[2025-02-03] MEDS ORDERED: ONDANSETRON 4MG 2ML VIAL IV ONE (11:00)
[2025-02-03] MEDS ORDERED: MORPHINE 2 MG/ML 1 ML VIAL IV PRN (11:00)
[2025-02-03] MEDS: KETOROLAC 30 MG/ML 1 ML VIAL IV ONE (11:17)
[2025-02-03 14:55] VITALS: BP 118/62
[2025-02-03] MEDS ORDERED: KETO-204 PO (15:37)
[2025-02-03] MEDS ORDERED: HYDR-3713 PO (15:44)
[2025-02-03 15:45] VITALS: O2SAT 99
== END 2025-02-03 16:05 | disposition home or self-care (01) ==
LOC: M ED 07:19
DX: M54.16 Radiculopathy, lumbar region (principal); M51.26 Other intervertebral disc displacement, lumbar region; M51.27 Other intervertebral disc displacement, lumbosacral region; E28.2 Polycystic ovarian syndrome; Z91.048 Other nonmedicinal substance allergy status; Z79.1 Long term (current) use of non-steroidal anti-inflammatories (NSAID); Z79.899 Other long term (current) drug therapy
CPT/HCPCS: 72148; 96374; 99284; J1885